=== PATIENT | male | born 1965 | race Two or more races ===

== ENCOUNTER 2019-01-01 08:43 | Emergency (ER) | payer MEDICAID ==
[~2019-01-01] VITALS: Ht 170.2 cm; Wt 77.6 kg
[2019-01-01 08:55] VITALS: BP 124/70
== END 2019-01-01 11:51 | disposition home or self-care (01) ==
LOC: ER 08:43
DX: S50.01XA Contusion of right elbow, initial encounter (principal); J45.909 Unspecified asthma, uncomplicated; W19.XXXA Unspecified fall, initial encounter; Y93.89 Activity, other specified; Y92.89 Other specified places as the place of occurrence of the external cause; Y99.8 Other external cause status
CPT/HCPCS: 73080

== ENCOUNTER 2023-08-15 09:48 | Emergency (ER) | payer MEDICAID ==
[~2023-08-15] VITALS: Ht 170.2 cm; Wt 80.1 kg
[2023-08-15 10:33] VITALS: BP 135/77; PULSE 72; RESP 16; TEMP 97.4; O2SAT 97
[2023-08-15] MEDS ORDERED: CEPH500T PO (12:11)
[2023-08-15] MEDS ORDERED: BACDST PO (12:11)
== END 2023-08-15 12:15 | disposition home or self-care (01) ==
LOC: ER 09:48
DX: R22.1 Localized swelling, mass and lump, neck (principal); J45.909 Unspecified asthma, uncomplicated; Z79.899 Other long term (current) drug therapy
CPT/HCPCS: 76536

== ENCOUNTER 2025-01-29 11:51 | Emergency (ER) | payer MEDICAID ==
[~2025-01-29] VITALS: Ht 170.2 cm; Wt 78.2 kg
[~2025-01-29 11:51] MED LIST: BACDST PO; CEPH500T PO
[2025-01-29 12:00] VITALS: BP 155/89; PULSE 64; RESP 17; TEMP 98.6; O2SAT 98
--- NOTE | 2025-01-29 12:53 | ED.PDOC ---
History of Present Illness HPI Comments 59-year-old male presents with a chief compliant of right flank pain that radiates down to his right inguinal region. patient mentions that the pain is made worse with certain movements. Patient denies any hematuria, dysuria, or any other genitourinary symptoms. Patient denies any chest pain, headache, SOB, or neck pain. No other symptoms or modifying factors present at this time. Chief Complaint: Flank Pain Time Seen by MD: 12:45 Primary Care Provider: none Reviewed Notes: Medications, Allergies Allergies: Coded Allergies: NO KNOWN ALLERGIES (Unverified , 07/13/13) Home Meds Active Scripts Tamsulosin Hcl (Flomax) 0.4 Mg Cap, 1 CAP PO DAILY for 7 Days, #7 CAP 11 Refills Prov:MURRAY FLORIAN MD 01/29/25 Ibuprofen Micronized (MOTRIN TABLET) 600 Mg Tb, 600 MG PO TID PRN for 5 Days, #15 TAB *Black box warning-NSAIDS can increase risk of IL & hypertension, GI irritation, ulceration, bleed, perferation. Do not use post cardiac surgery. Use short duration/lowest effective dose. Prov:MURRAY FLORIAN MD 01/29/25 Sulfamethoxazole W/Trimethopri (Bactrim Ds Tablet) 1 Tab Tb, 1 TAB PO BID for 5 Days, #10 TAB 0 Refills Prov:JOSELUIS MADERA NP 08/15/23 Cephalexin Monohydrate (Cephalexin) 500 Mg Tab, 500 MG PO QID for 5 Days, #20 TAB 0 Refills Prov:JOSELUIS MADERA NP 08/15/23 Information Source: Patient Mode of Arrival: Ambulatory Severity: Moderate Timing: Days Duration: Since onset Prehospital treatment: None Past Medical History PAST MEDICAL HISTORY: Asthma Family History Family History: Reviewed,noncontributory to illness, Unknown Social History Smoker: Non-Smoker Alcohol: Occasionally Drugs: Denies Drug Use Lives In: Home Constitutional: denies: chills, diaphoresis, fatigue, fever, malaise, sweats, weakness, others EENTM: denies: blurred vision, double vision, ear bleeding, ear discharge, ear drainage, ear pain, ear ringing, eye pain, eye redness, hearing loss, mouth pain, mouth swelling, nasal discharge, nose bleeding, nose congestion, nose pain, photophobia, tearing, throat pain, throat swelling, voice changes, others Respiratory: denies: cough, hemoptysis, orthopnea, SOB at rest, shortness of breath, SOB with excertion, stridor, wheezing, others Cardiovascular: denies: chest pain, dizzy spells, diaphoresis, Dyspnea on exertion, edema, irregular heart beat, left arm pain, lightheadedness, palpitations, PND, syncope, others Gastrointestinal: reports: nausea, vomiting; denies: abdomen distended, abdominal pain, blood streaked bowels, constipated, diarrhea, dysphagia, difficulty swallowing, hematemesis, melena, poor appetite, poor fluid intake, r ectal bleeding, rectal pain, others Genitourinary: reports: flank pain; denies: burning, dysuria, frequency, hematuria, incontinence, penile discharge, penile sore, pain, testicle pain, testicle swelling, urgency, others Neurological: denies: dizziness, fainting, headache, left sided numbness, left sided weakness, numbness, paresthesia, pre-existing deficit, right sided numbness, right sided weakness, seizure, speech problems, tingling, tremors, weakness, others Musculoskeletal: denies: back pain, gout, joint pain, joint swelling, muscle pain, muscle stiffness, neck pain, others Integumetry: denies: bruises, change in color, change in hair/nails, dryness, laceration, lesions, lumps, rash, wounds, others Allergic/Immunocompromised: denies: Difficulty Healing, Frequent Infections, Hives, Itching, others Hematologic/Lymphatic: denies: anemia, blood clots, easy bleeding, easy bruising, swollen glands, others Endocrine: denies: excessive hunger, excessive sweating, excessive thirst, excessive urination, flushing, intolerance to cold, intolerance to heat, unexplained weight gain, unexplained weight loss, others Psychiatric: denies: anxiety, bipolar disorder, depression, hopeless, panic disorder, schizophrenia, sleepless, suicidal, others All Other Systems: Reviewed and Negative Physical Exam General Appearance: Moderate Distress, Normal HEENT: Normal ENT Inspection, Pharynx Normal, TMs Normal Neck: Full Range of Motion, Non-Tender, Normal, Normal Inspection Respiratory: Chest Non-Tender, Lungs Clear, No Accessory Muscle Use, No Respiratory Distress, Normal Breath Sounds Cardiovascular: No Edema, No JVD, No Murmur, No Gallop, Normal Peripheral Pulses, Regular Rate/Rhythm Breast Exam: Deferred Gastrointestinal: No Organomegaly, Non Tender, No Pulsatile Mass, Normal Bowel Sounds, Soft Genitalia: Deferred Pelvic: Deferred Rectal: Deferred Extremities: No calf tenderness, Normal capillary refill, Normal inspection, Normal range of motion, Non-tender, No pedal edema Musculoskeletal : Apperance: Normal Neurologic: Alert, skid adzer II-XII nml as Tested, No Motor Deficits, Normal Affect, Normal Mood, No Sensory Deficits Cerebellar Function: Normal Reflexes: Normal Skin: Dry, Normal Color, Warm Peripheral Pulses: 3+ Radial (R), 3+ Radial (L) Lymphatic: No Adenopathy Was a procedure done? Was a procedure done?: No Differential Dx Considerations may include: Kidney stone X-Ray, Labs, Meds, VS Vital Signs Date Time Temp Pulse Resp B/P (MAP) Pulse Ox O2 Delivery O2 Flow Rate FiO2 01/29/25 12:00 98.6 64 17 155/89 (111) 98 98.6 Lab Test 01/29/25 12:44 Range/Units Urine Color Brown H Yellow Urine Clarity Turbid H Clear Urine pH 5.5 5.0-9.0 Urine Specific [place] 1.026 1.001-1.035 Urine Protein 1+ H Negative Urine Ketones Negative Negative Urine Blood 3+ H Negative /uL Urine Nitrite Negative Negative Urine Bilirubin Negative Negative Urine Urobilinogen Normal Negative mg/dL Urine Leukocyte Esterase Trace Negative /uL Urine RBC 2251 0 - 3 /hpf Urine Microscopic WBC 4 H 0-3 /HPF Urine Squamous Epithelial Cells None seen <5 /hpf Urine Calcium Oxalate Crystals Few None Seen Urine Bacteria Few H None Seen /hpf Urine Mucus Few None Seen Urine Glucose Normal Normal mg/dL Current Medications Medications (Trade) Dose Ordered Sig/Peter Route Start Time Stop Time Status Last Admin Sodium Chloride 1,000 ml @ 1,000 mls/hr Q1H ONCE IV 01/29/25 14:15 01/29/25 15:14 DC 01/29/25 14:15 Patient alert. Came in because of right flank pain. Vitals stable. Answering questions. Establish intravenous access. Was given fluids. Was given Toradol. Was given Flomax. CT scan of the abdomen does show a kidney stone. Was given prescription of Motrin Flomax. Explained the results to the patient. Was told to follow up with his primary care physician. Was told to come back if there is any problem. Time of 1ST Reevaluation: 12:45 (EXPLAINED TO THE PATIENT THAT THEY MAY BE STAYING WITH US IN THE HOSPITAL, BUT IF STABLE FOR DISCHARGE, THEY WILL BE NOTIFIED AND SENT HOME. ) Reevaluation 1ST: Unchanged Time of 2ND Reevaluation: 13:15 Reevaluation 2ND: Unchanged Patient Education/Counseling: Diagnosis, Treatment Family Education/Counseling: No Family Present Departure 1 Departure Time of Disposition: 14:07 Impression: Primary Impression: Kidney stone Additional Impression: Hydronephrosis Qualified Codes: N13.30 - Unspecified hydronephrosis Disposition: 01 HOME / SELF CARE / HOMELESS Condition: Good e-Prescriptions Tamsulosin Hcl (Flomax) 0.4 Mg Cap 1 CAP PO DAILY for 7 Days, #7 CAP 11 Refills Prov: MURRAY FLORIAN MD 01/29/25 Ibuprofen Micronized (MOTRIN TABLET) 600 Mg Tb 600 MG PO TID PRN for 5 Days, #15 TAB *Black box warning-NSAIDS can increase risk of IL & hypertension, GI irritation, ulceration, bleed, perferation. Do not use post cardiac surgery. Use short duration/lowest effective dose. Prov: MURRAY FLORIAN MD 01/29/25 Discharged With: Self Comments Explained to the patient that he will be discharged home in front of the nurse in the treatment area at 3:45 p.m. Critical Care Note Critical Care Time?: No Stability Stability form required: No Heart Score Heart Score: Heart Score Response (Comments) Value History N/A 0 EKG N/A 0 Age N/A 0 Risk Factors N/A 0 Troponin N/A 0 Total 0 I personally scribed for MURRAY FLORIAN MD ([email or web address]) on 01/29/25 at 12:53. Electronically submitted by Ivan Lees ([email or web address]). I personally scribed for MURRAY FLORIAN MD ([email or web address]) on 01/29/25 at 15:35. Electronically submitted by Ivan Lees ([email or web address]). I personally scribed for MURRAY FLORIAN MD ([email or web address]) on 01/29/25 at 15:59. Electronically submitted by Ivan Lees ([email or web address]). MURRAY FLORIAN MD January 29, 2025 12:53
[2025-01-29 13:01] LABS: Urine Bacteria FEW /hpf (None Seen); Urine Blood 3+ /uL (Negative); Urine Clarity Turbid (Clear); Urine Color Brown (Yellow); Urine Mucus FEW (None Seen); Urine Protein, UAD 1+ (Negative); Urine Specific Gravity 1.026 (1.001-1.035); Urine Squamous Epithelial Cell None Seen /hpf (<5); Urine Urobilinogen Normal (Negative); Urine WBC 4 /HPF (0-3); Urine pH 5.5 (5.0-9.0)
--- NOTE | 2025-01-29 13:36 | DVH ---
CT ABDOMEN AND PELVIS WITHOUT CONTRAST CLINICAL HISTORY: stone TECHNIQUE: Multiple contiguous axial images of the abdomen and pelvis without intravenous contrast. T he images were reformatted degenerate coronal and sagittal reconstructions. All CT scans at this medical facility are performed using dose modulation techniques as appropriate t o a performed exam including the following:Automated exposure control was utilized; adjustment of the MA and/or KV according to patient size; and use of iterative reconstruction technique. Radiation Dose Information: CT Dose: CTDI volume is 9 mGy. Dose-length product is 559 mGy*cm Comparison: None FINDINGS: Evaluation of the abdomen and pelvis is limited without intravenous contrast. There is a 3 mm calculus in the mid right ureter. There is mild right hydroureteronephrosis. There is a 2 mm calculus in the lower pole of the right kidney. There is no evidence of left renal nephrolithiasis or hydronephrosis. The liver, gallbladder, pancreas, adrenal glands, and spleen appear within normal limits. There is no gross evidence of abdominal lymphadenopathy. There is no free fluid or free air. The stomach grossly appears unremarkable. The small and large bowel loops demonstrate normal caliber and distribution. A normal appearing appendix is seen in the right lower quadrant abdomen. There are scattered diverticula in the distal colon without evidence of acute diverticulitis. The abdominal aorta and IVC appear within normal limits. The prostate gland appears mildly prominent in size. The bladder is poorly filled limiting evaluation .. There is no gross evidence of a pelvic mass. There is no free fluid collection. Lung bases are clear. There is no acute osseous abnormality. IMPRESSION: 1. 3 mm calculus in the mid right ureter. There is mild right hydroureteronephrosis. 2. 2 mm calculus in the lower pole of the right kidney. 3. Mildly prominent size prostate gland. HS:Y
[2025-01-29] MEDS: TAMSULOSIN HYDROCHLORIDE 0.4 MG CAP PO ONE (14:15)
[2025-01-29] MEDS: SODIUM CHLORIDE 0.9% 1,000 ML IV ONE (14:15)
[2025-01-29] MEDS: KETOROLAC TROMETH 30 MG/ML 1ML VIAL IV ONE (14:15)
[2025-01-29] MEDS ORDERED: IBU600T PO (15:54)
[2025-01-29] MEDS ORDERED: TAMS-35 PO (15:54)
== END 2025-01-29 17:00 | disposition home or self-care (01) ==
LOC: ER 11:55
DX: N13.2 Hydronephrosis with renal and ureteral calculous obstruction (principal); J45.909 Unspecified asthma, uncomplicated; Z79.899 Other long term (current) drug therapy
CPT/HCPCS: 74176; 81001; 96361; 96374; 99285; J1885; J7030